=== PATIENT | male | born 1990 | race Caucasian/White ===

== ENCOUNTER 2016-08-22 12:31 | Emergency (ER) | payer OTHER ==
--- NOTE | 2016-08-22 13:03 | PHYS DOC ---
Past Medical History Past Medical History: Other Additional Past Medical Histor: PTSD,R knee pain Past Surgical History: Other Additional Past Surgical Histo: KNEE SURGERY Alcohol Use: Occasionally Drug Use: None Adult General Chief Complaint Chief Complaint: MULTIPLE COMPLAINTS HPI HPI Patient is a 26 year old male who presents with migraine headache. He states he gets migraines and they usually come about once a month and usually is able take Advil or migraine tablet and restively wakes up it goes away. Yesterday he states he started getting a dull headache last night and woke up this morning it was still there but worse now. He states he vomited one to 2 times and he states this is his normal headache just a little bit worse. He denies any fevers confusion, neck stiffness. He states it hurts in the frontal aspect of his head this, dull ache which is his similar symptoms. He denies any allergies to medications. He states he is friend drove him to the ER today. Review of Systems Review of Systems Constitutional: Denies fever or chills [] Eyes: Denies change in visual acuity, redness, or eye pain [] HENT: Denies nasal congestion or sore throat [] Respiratory: Denies cough or shortness of breath [] Cardiovascular: No additional information not addressed in HPI [] GI: Denies abdominal pain, nausea, vomiting, bloody stools or diarrhea [] : Denies dysuria or hematuria [] Musculoskeletal: Denies back pain or joint pain [] Integument: Denies rash or skin lesions [] Neurologic: Denies focal weakness or sensory changes, positive for headache Endocrine: Denies polyuria or polydipsia [] Current Medications Current Medications Current Medications Medications (Trade) Dose Ordered Sig/Mikel Start Time Stop Time Status Last Admin Dose Admin Diphenhydramine HCl (Benadryl) 25 mg 1X ONCE 08/22/16 13:30 08/22/16 13:31 DC 08/22/16 13:19 25 MG Promethazine HCl 25 mg/Sodium Chloride 51 ml @ 101 mls/hr 1X ONCE 08/22/16 13:30 08/22/16 14:00 DC 08/22/16 13:19 101 MLS/HR Sodium Chloride 1,000 ml @ 1,000 mls/hr 1X ONCE 08/22/16 13:30 08/22/16 14:29 DC 08/22/16 13:14 1,000 MLS/HR Allergies Allergies Allergies Coded Allergies Type Severity Reaction Last Updated Verified No Known Drug Allergies 08/03/13 No Physical Exam Physical Exam Constitutional: Well developed, well nourished, no acute distress, non-toxic appearance. [] HENT: Normocephalic, atraumatic, bilateral external ears normal, oropharynx moist, no oral exudates, nose normal. [] Eyes: PERRLA, EOMI, conjunctiva normal, no discharge. [] Neck: Normal range of motion, no tenderness, supple, no stridor. [] Cardiovascular:Heart rate regular rhythm, no murmur [] Lungs & Thorax: Bilateral breath sounds clear to auscultation [] Abdomen: Bowel sounds normal, soft, no tenderness, no masses, no pulsatile masses. [] Skin: Warm, dry, no erythema, no rash. [] Back: No tenderness, no CVA tenderness. [] Extremities: No tenderness, no cyanosis, no clubbing, ROM intact, no edema. [] Neurologic: Alert and oriented X 3, normal motor function, normal sensory function, no focal deficits noted. [] Psychologic: Affect normal, judgement normal, mood normal. [] Current Patient Data Vital Signs Vital Signs Date Time Temp Pulse Resp B/P (MAP) Pulse Ox O2 Delivery O2 Flow Rate FiO2 08/22/16 13:00 98.1 67 18 123/67 (85) 100 Room Air 98.1 EKG EKG [] Radiology/Procedures Radiology/Procedures [] Impressions: Migraine Course & Med Decision Making Course & Med Decision Making Pertinent Labs and Imaging studies reviewed. (See chart for details) Was given IV Phenergan and Benadryl and his headache has resolved. He is being discharged with by mouth Phenergan. Return precautions given for severe headache , uncontrolled nausea vomiting, fevers, nuchal rigidity, confusion or other concerns. He is agreeable to the plan and being discharged in stable condition. Dragon Disclaimer Dragon Disclaimer This electronic medical record was generated, in whole or in part, using a voice recognition dictation system. Departure Departure Impression: Primary Impression: Migraine Disposition: 01 HOME, SELF-CARE Condition: STABLE Referrals: UNKNOWN PCP NAME (PCP) Patient Instructions: Migraine Headache Additional Instructions: You received IV Phenergan and Benadryl. Your migraine headache has resolved. Your being discharged home. Your being given a prescription for Phenergan. If your headache returns and your normal migraine treatments dont work you can take Phenergan and Benadryl by mouth. Please follow the instructions on the bottle. Do not drive or taking this medicine as it they can both make you sleepy and impair judgment. Return ER if you have severe headache, uncontrolled nausea vomiting, fevers or other concerns. Scripts Promethazine Hcl (PROMETHAZINE HCL) 25 Mg Tablet 1 TAB PO PRN Q6HRS Y for MIGRAINE HEADACHE, #30 TAB Prov: HEATHER CORRALES MD 08/22/16 HEATHER CORRALES MD Aug 22, 2016 13:03
[2016-08-22] MEDS ORDERED: PROMETHAZINE 25 MG in IV NORMAL SALINE 50ML 50 ML IV ONE (13:30)
[2016-08-22] MEDS ORDERED: diphenhydrAMINE 50 MG/ML VIAL IVP ONE (13:30)
[2016-08-22] MEDS ORDERED: IV NORMAL SALINE 1000ML BAG 1,000 ML IV ONE (13:30)
[2016-08-22] MEDS ORDERED: PROM25TA10 PO (15:19)
[2016-08-22 15:20] VITALS: BP 107/56
== END 2016-08-22 15:28 | disposition home or self-care (01) ==
LOC: ER 12:31
DX: G43.909 Migraine, unspecified, not intractable, without status migrainosus (principal); F43.10 Post-traumatic stress disorder, unspecified
CPT/HCPCS: 96365; 96375; 99284; J1200; J2550; J7030

== ENCOUNTER 2017-01-02 16:03 | Emergency (ER) | payer OTHER ==
[~2017-01-02] VITALS: Ht 177.8 cm; Wt 65.8 kg
[~2017-01-02 16:03] MED LIST: PROM25TA10 PO
[2017-01-02 16:12] VITALS: BP 124/73
[2017-01-02] MEDS ORDERED: KETOROLAC 60 MG/2 ML INJ. IM ONE (16:45)
--- NOTE | 2017-01-02 16:52 | RAD ---
2 view CXR: Clinical indications: Left-sided chest pain radiating to left shoulder for 4 hours.. Findings: No acute lung infiltrate or pleural effusion or pulmonary edema or lung mass or pneumothorax is seen. The heart size, pulmonary vasculature, mediastinum and both jordon are unremarkable. The osseous structures appear intact. Impression: No acute radiographic abnormality is seen.
[2017-01-02] MEDS ORDERED: NAPR500T PO (17:07)
--- NOTE | 2017-01-02 17:08 | PHYS DOC ---
Past Medical History Past Medical History: Other Additional Past Medical Histor: PTSD,R knee pain, history of TBI Past Surgical History: Other Additional Past Surgical Histo: KNEE SURGERY Alcohol Use: Occasionally Drug Use: None Adult General Chief Complaint Chief Complaint: CHEST WALL PAIN HPI HPI Patient is a 26 year old male who presents with complaint of chest wall pain that started earlier today. Patient states that the pain is located over his breastbone. Patient states that the pain becomes sharp whenever he tries to take a deep breath. Patient states that he had a recent viral illness that resolved 3 days ago prior to onset of symptoms. Patient denies any fevers or shortness of breath currently. Any significant past medical history. Patient denies family history of cardiac disease in young members of his family. Patient has not taken any medications at this time to help with symptoms. Patient rates his pain as 4 out of 10 at rest but states that it increases to 8 out of 10 with coughing and deep inspiration. Review of Systems Review of Systems Constitutional: Denies fever or chills [] Eyes: Denies change in visual acuity, redness, or eye pain [] HENT: Denies nasal congestion or sore throat [] Respiratory: Denies cough or shortness of breath [] Cardiovascular: Chest pain, denies edema[] GI: Denies abdominal pain, nausea, vomiting, bloody stools or diarrhea [] : Denies dysuria or hematuria [] Musculoskeletal: Denies back pain or joint pain [] Integument: Denies rash or skin lesions [] Neurologic: Denies headache, focal weakness or sensory changes [] Current Medications Current Medications Current Medications Medications (Trade) Dose Ordered Sig/[facility] Start Time Stop Time Status Last Admin Dose Admin Ketorolac Tromethamine (Toradol Im) 60 mg 1X ONCE 01/02/17 16:45 01/02/17 16:46 DC 01/02/17 16:38 60 MG Allergies Allergies Allergies Coded Allergies Type Severity Reaction Last Updated Verified No Known Drug Allergies 08/03/13 No Physical Exam Physical Exam Constitutional: Alert, afebrile, no acute distress. [] HENT: Normocephalic, atraumatic, bilateral external ears normal, oropharynx moist, no oral exudates, nose normal. [] Eyes: PERRLA, EOMI, conjunctiva normal, no discharge. [] Neck: Normal range of motion, no tenderness, supple, no stridor. [] Cardiovascular:Heart rate regular rhythm, no murmur [] Lungs & Thorax: Bilateral breath sounds clear to auscultation, minimal tenderness palpation over anterior chest wall [] Abdomen: Bowel sounds normal, soft, no tenderness, no masses, no pulsatile masses. [] Skin: Warm, dry, no erythema, no rash. [] Back: No tenderness, no CVA tenderness. [] Extremities: No tenderness, no cyanosis, no clubbing, ROM intact, no edema. [] Neurologic: Alert and oriented X 3, normal motor function, normal sensory function, no focal deficits noted. [] Current Patient Data Vital Signs Vital Signs Date Time Temp Pulse Resp B/P (MAP) Pulse Ox O2 Delivery O2 Flow Rate FiO2 01/02/17 16:12 98.9 89 20 124/73 (90) 99 Room Air 98.9 EKG EKG Interpreted by me: Heart rate 83, sinus rhythm, normal intervals, normal axis, no acute ST/T-wave abnormalities present[] Radiology/Procedures Radiology/Procedures Two-view chest x-ray interpreted by me: No infiltrates, no effusions, normal cardiac silhouette[] Course & Med Decision Making Course & Med Decision Making Pertinent Labs and Imaging studies reviewed. (See chart for details) The patient's symptoms appear consistent with pleurisy likely secondary to recent viral illness. Patient's EKG and chest x-rays are normal. I have low suspicion for acute cardiac etiology of symptoms. Patient does not meet Wells criteria for pulmonary embolism. Patient treated with Toradol in the emergency department with improvement symptoms. The patient will continue on Naprosyn for outpatient therapy and recommended follow-up in one week primary doctor for reevaluation. Advised return emergency department for any worsening symptoms. Patient voiced understanding and in agreement with treatment plan. Dragon Disclaimer Dragon Disclaimer This electronic medical record was generated, in whole or in part, using a voice recognition dictation system. Departure Departure Impression: Primary Impression: Chest pain Disposition: HOME, SELF-CARE Condition: IMPROVED Referrals: UNKNOWN PCP NAME (PCP) Patient Instructions: Chest Pain (Nonspecific) Additional Instructions: Follow-up to primary doctor in 1 week for reevaluation. Return to emergency department for any worsening symptoms. Scripts Naproxen (NAPROSYN) 500 Mg Tablet 1 TAB PO BID, #14 TAB 0 Refills Prov: MARK TALAMANTES MD 01/02/17 Problem Qualifiers Primary Impression: Chest pain Chest pain type: chest pain on breathing Qualified Codes: R07.1 - Chest pain on breathing MARK TALAMANTES MD Jan 02, 2017 17:08
--- NOTE | 2017-01-02 17:18 | EKG ---
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
== END 2017-01-02 17:14 | disposition home or self-care (01) ==
LOC: ER 16:03
DX: R07.1 Chest pain on breathing (principal); R05 Cough; F43.10 Post-traumatic stress disorder, unspecified; Z87.820 Personal history of traumatic brain injury
CPT/HCPCS: 71020; 93005; 96372; 99284; J1885

== ENCOUNTER 2017-07-26 14:52 | Emergency (ER) | payer OTHER | END 2017-07-26 15:59 | disposition home or self-care (01) | LOC: ER 14:52 | DX: S46.911A Strain of unspecified muscle, fascia and tendon at shoulder and upper arm level, right arm, initial encounter (principal); F43.10 Post-traumatic stress disorder, unspecified; V89.2XXA Person injured in unspecified motor-vehicle accident, traffic, initial encounter; Y93.89 Activity, other specified; Y99.8 Other external cause status; Y92.488 Other paved roadways as the place of occurrence of the external cause | CPT/HCPCS: 73030; 99284 ==

== ENCOUNTER 2018-05-02 00:45 | Emergency (ER) | payer OTHER ==
[~2018-05-02] VITALS: Ht 175.3 cm; Wt 65.8 kg
[~2018-05-02 00:45] MED LIST changes: +CYCL10TA2 PO; +METH4TAB2 PO; +NAPR-514 PO; +NAPR-683 PO
[2018-05-02 00:54] VITALS: BP 117/56
[2018-05-02] MEDS ORDERED: PROPARACAINE 0.5% OPHTH SOLUTION 15ML BOTTLE. OD ONE (01:30)
[2018-05-02] MEDS ORDERED: DIPHTH,PERTUSS(ACELL),TET TOX 0.5 ML DISP.SYRIN. VAX IM ONE (01:30)
[2018-05-02] MEDS ORDERED: SULF5DRO OD (01:47)
--- NOTE | 2018-05-02 05:40 | PHYS DOC ---
Past Medical History Past Medical History: No Pertinent History Additional Past Medical Histor: PTSD,R knee pain, history of TBI Past Surgical History: Other Additional Past Surgical Histo: RIGHT KNEE MENISCUS Alcohol Use: None Drug Use: None Adult General Chief Complaint Chief Complaint: EYE PROBLEMS HPI HPI Patient is a 27 year old 27-year-old male who presents with right eye patient veryforeign body sensation after grinding metal several hours prior to ED arrival. Denies vision change. On exam, the patient has a particulate piece of metal embedded into his cornea the 3 o'clock position over the iris. no other symptoms or complaints.[] Review of Systems Review of Systems All other systems were reviewed and found to be within normal limits, except as documented in this note.Review symptoms as per history of present illness. Current Medications Current Medications Current Medications Medications (Trade) Dose Ordered Sig/Mikel Start Time Stop Time Status Last Admin Dose Admin Diphtheria/ Tetanus/Acell Pertussis (Boostrix) 0.5 ml ONCE ONCE 05/02/18 01:30 05/02/18 01:31 DC 05/02/18 01:09 0.5 ML Proparacaine HCl (Alcaine) 2 drop 1X ONCE 05/02/18 01:30 05/02/18 01:31 DC 05/02/18 01:09 2 DROP Allergies Allergies Allergies Coded Allergies Type Severity Reaction Last Updated Verified No Known Drug Allergies 08/03/13 No Physical Exam Physical Exam Constitutional: Well developed, well nourished, no acute distress, non-toxic appearance. [] HENT: Normocephalic, atraumatic, bilateral external ears normal, oropharynx moist, no oral exudates, nose normal. [] Eyes: PERRLA,particular, metal, foreign body right eye cornea at 3 o'clock position overlying medial iris.no foreign bodies present under eyelids on inspection and sleeping [] Neck: Normal range of motion, no tenderness, supple, no stridor. [] , normal sensory function, no focal deficits noted. [] Psychologic: Affect normal, judgement normal, mood normal. [] Current Patient Data Vital Signs Vital Signs Date Time Temp Pulse Resp B/P (MAP) Pulse Ox O2 Delivery O2 Flow Rate FiO2 05/02/18 00:54 97.3 77 117/56 (76) 97 97.3 EKG EKG [] Radiology/Procedures Radiology/Procedures [] Course & Med Decision Making Course & Med Decision Making Pertinent Labs and Imaging studies reviewed. (See chart for details) [Alcaine applied to right eye.Foreign body cautiously removed via bevelled needle with aid of slit lamp. This was then cautiously in successful on first attempt. Patient reports resolution of symptoms after foreign body removal. Patient's eye irrigated] Dragon Disclaimer Dragon Disclaimer This electronic medical record was generated, in whole or in part, using a voice recognition dictation system. Departure Departure Impression: Primary Impression: Foreign body in eyeball, right Disposition: 01 HOME, SELF-CARE Condition: GOOD Patient Instructions: Eye - Foreign Body, [id number] Additional Instructions: Please use topical eye drops as directed and follow up with local eye doctor on Thursday for re-evaluation if symptoms persist. Return to the ED if new or worsening symptoms. Scripts Sulfacetamide Sodium (BLEPH-10) 5 Ml Drops 2 DROP OD TID for 7 Days, #5 ML Prov: DELANO RUSHING DO 05/02/18 DELANO RUSHING DO May 02, 2018 05:40
== END 2018-05-02 02:00 | disposition home or self-care (01) ==
LOC: ER 00:45
DX: T15.01XA Foreign body in cornea, right eye, initial encounter (principal); X58.XXXA Exposure to other specified factors, initial encounter; Y93.89 Activity, other specified; Y92.89 Other specified places as the place of occurrence of the external cause; Y99.8 Other external cause status
CPT/HCPCS: 65222; 90471; 90715; 99284-25

== ENCOUNTER 2018-05-02 04:00 | Emergency (ER) | payer OTHER ==
[~2018-05-02] VITALS: Ht 175.3 cm; Wt 65.8 kg
[~2018-05-02 04:00] MED LIST changes: +SULF5DRO OD
[2018-05-02 04:08] VITALS: BP 106/66
--- NOTE | 2018-05-02 05:59 | PHYS DOC ---
Past Medical History Past Medical History: No Pertinent History Additional Past Medical Histor: PTSD,R knee pain, history of TBI Past Surgical History: Other Additional Past Surgical Histo: RIGHT KNEE MENISCUS Alcohol Use: None Drug Use: None Adult General Chief Complaint Chief Complaint: EYE PROBLEMS HPI HPI Patient is a 27 year old right eye foreign body sensation, patient seen in the emergency department earlier this evening with removal of embedded right eye metal foreign body. Patient denies change in vision. States he felt a foreign body sensation under his upper eyelid after irrigation in the emergency department. A foreign body sensation has since resolved. [] Review of Systems Review of Systems ROS as per HPI [] All other systems were reviewed and found to be within normal limits, except as documented in this note. Allergies Allergies Allergies Coded Allergies Type Severity Reaction Last Updated Verified No Known Drug Allergies 08/03/13 No Physical Exam Physical Exam Constitutional: Well developed, well nourished, no acute distress, non-toxic appearance. [] HENT: Normocephalic, atraumatic, bilateral external ears normal, oropharynx moist, no oral exudates, nose normal. [] Eyes: PERRLA, EOMI, no foriegn body upon eyelid eversion, sweeping, and inspection after irrigation. [] Neck: Normal range of motion, no tenderness, supple, no stridor. [] Cardiovascular:Heart rate regular rhythm, no murmur [] Lungs & Thorax: Bilateral breath sounds clear to auscultation [] Abdomen: Bowel sounds normal, soft, no tenderness. [] Skin: Warm, dry, no erythema, no rash. [] Back: No tenderness. [] Extremities: No tenderness, no cyanosis, no clubbing, ROM intact, no edema. [] Neurologic: Alert and oriented X 3, normal motor function, normal sensory function, no focal deficits noted. [] Psychologic: Affect normal, judgement normal, mood normal. [] Current Patient Data Vital Signs Vital Signs Date Time Temp Pulse Resp B/P (MAP) Pulse Ox O2 Delivery O2 Flow Rate FiO2 05/02/18 04:08 97.9 60 18 106/66 (79) 99 Room Air 97.9 EKG EKG [] Radiology/Procedures Radiology/Procedures [] Course & Med Decision Making Course & Med Decision Making Pertinent Labs and Imaging studies reviewed. (See chart for details) [temporary foreign body sensation, ophthalmology follow-up as needed] Quinn Disclaimer Quinn Disclaimer This electronic medical record was generated, in whole or in part, using a voice recognition dictation system. Departure Departure Impression: Primary Impression: Sensation of foreign body in eye Disposition: 01 HOME, SELF-CARE Condition: GOOD Patient Instructions: Eye - Foreign Body, [id number] Additional Instructions: Apply antibiotic eyedrops as directed and follow up with eye doctor on Thursday if pain persists. DELANO RUSHING DO May 02, 2018 05:59
== END 2018-05-02 04:40 | disposition home or self-care (01) ==
LOC: ER 04:00
DX: H57.89 Other specified disorders of eye and adnexa (principal); F43.10 Post-traumatic stress disorder, unspecified; Z87.820 Personal history of traumatic brain injury
CPT/HCPCS: 99281; 99282

== ENCOUNTER 2018-05-06 09:04 | Emergency (ER) | payer OTHER ==
[~2018-05-06] VITALS: Ht 175.3 cm; Wt 65.8 kg
[2018-05-06 09:08] VITALS: BP 139/67
[2018-05-06] MEDS ORDERED: FLUORESCEIN OPHTH TEST STRIP. OD ONE (09:30)
[2018-05-06] MEDS ORDERED: TETRACAINE 0.5% OPHTH SOLUTION 4ML BOTTLE. OD ONE (09:30)
--- NOTE | 2018-05-06 10:04 | PHYS DOC ---
Past Medical History Past Medical History: Other Additional Past Medical Histor: PTSD,R knee pain, history of TBI Past Surgical History: Other Additional Past Surgical Histo: RIGHT KNEE MENISCUS Additional Information: 0.5 PPD Alcohol Use: None Drug Use: None Adult General Chief Complaint Chief Complaint: EYE PROBLEMS HPI HPI Patient is a 27 year old medical presents with right eye irritation that began on Thursday. Patient states he was seen in the ED Thursday after having a piece of metal in his eye from grinding metal he states the metal was removed. He states he has continued to feel irritation to the eye. Patient denies any vision loss. He states he has not followed up with an sr solutions consultant and could not afford the prescription antibiotic medicine that was written for pain on Thursday. Review of Systems Review of Systems Constitutional: Denies fever or chills [] Eyes: Reports right eye irritation. Denies change in visual acuity, redness, or eye pain [] Musculoskeletal: Denies back pain or joint pain [] Integument: Denies rash or skin lesions [] Neurologic: Denies headache, focal weakness or sensory changes [] All other systems were reviewed and found to be within normal limits, except as documented in this note. Current Medications Current Medications Current Medications Medications (Trade) Dose Ordered Sig/Mikel Start Time Stop Time Status Last Admin Dose Admin Fluorescein Sodium (Ful-Meggan) 1 strip 1X ONCE 05/06/18 09:30 05/06/18 09:31 DC 05/06/18 09:52 1 STRIP Tetracaine HCl (Tetracaine) 1 drop 1X ONCE 05/06/18 09:30 05/06/18 09:31 DC 05/06/18 09:52 1 DROP Allergies Allergies Allergies Coded Allergies Type Severity Reaction Last Updated Verified No Known Drug Allergies 08/03/13 No Physical Exam Physical Exam Constitutional: Well developed, well nourished, no acute distress, non-toxic appearance. [] HENT: Normocephalic, atraumatic, bilateral external ears normal, oropharynx moist, no oral exudates, nose normal. [] Eyes: PERRLA, EOMI, right conjunctiva is slightly injected, clear drainage, there is a tiny black object but could be metal or scarring after the metal was removed at 3 o'clock position. Skin: Warm, dry, no erythema, no rash. [] Back: No tenderness, no CVA tenderness. [] Extremities: No tenderness, no cyanosis, no clubbing, ROM intact, no edema. [] Neurologic: Alert and oriented X 3, normal motor function, normal sensory function, no focal deficits noted. [] Psychologic: Affect normal, judgement normal, mood normal. [] Current Patient Data Vital Signs Vital Signs Date Time Temp Pulse Resp B/P (MAP) Pulse Ox O2 Delivery O2 Flow Rate FiO2 05/06/18 09:08 98.1 65 20 139/67 (91) 99 Room Air 98.1 EKG EKG [] Radiology/Procedures Radiology/Procedures [] Course & Med Decision Making Course & Med Decision Making Pertinent Labs and Imaging studies reviewed. (See chart for details) This is a 27-year-old male patient who presents to the ED today complaining of right eye irritation from a piece of metal that got in his eye while grinding on Thursday last week. This is his third visit for this complain. Patient still has a tiny's speck in the right cornea it could be a left over metal speck or, scarring from metal removal. Patient was encouraged to follow up with sr solutions consultant considering it's almost been a week. Discharged with erythromycin. Dragon Disclaimer Dragon Disclaimer This electronic medical record was generated, in whole or in part, using a voice recognition dictation system. Departure Departure Impression: Primary Impression: Foreign body in eyeball, right Disposition: 01 HOME, SELF-CARE Condition: STABLE Referrals: UNKNOWN PCP NAME (PCP) ROB COX MD follow up as soon as possible Patient Instructions: Eye - Foreign Body Additional Instructions: You were evaluated in the emergency room we highly recommend you follow-up with an sr solutions consultant as soon as possible. Scripts Erythromycin Base (Erythromycin) 1 Gm Oint...g. 1 GM OP Q4HRS W/A, #1 MISC Prov: DEZ BARNEY FABRICE 05/06/18 Problem Qualifiers Primary Impression: Foreign body in eyeball, right Encounter type: initial encounter Qualified Codes: S05.51XA - Penetrating wound with foreign body of right eyeball, initial encounter DEZ BARNEY FABRICE May 06, 2018 10:04
[2018-05-06] MEDS ORDERED: ERYT1OIN6 OP (10:11)
== END 2018-05-06 10:24 | disposition home or self-care (01) ==
LOC: ER 09:04
DX: S05.51XA Penetrating wound with foreign body of right eyeball, initial encounter (principal); F17.200 Nicotine dependence, unspecified, uncomplicated; X58.XXXA Exposure to other specified factors, initial encounter; Y93.89 Activity, other specified; Y92.89 Other specified places as the place of occurrence of the external cause; Y99.8 Other external cause status
CPT/HCPCS: 99283; 99284

== ENCOUNTER 2019-03-22 04:10 | Emergency (ER) | payer SELFPAY ==
[~2019-03-22] VITALS: Ht 177.8 cm; Wt 65.8 kg
[~2019-03-22 04:10] MED LIST changes: +ERYT1OIN6 OP
[2019-03-22 04:32] LABS: BILIRUBIN,URINE NEGATIVE (NEG); CLARITY,URINE CLEAR; COLOR,URINE YELLOW; NITRITE,URINE NEGATIVE (NEG); PROTEIN,URINE NEGATIVE (NEG-TRACE)
[2019-03-22 04:36] LABS: BACTERIA,URINE 0 /HPF (0-FEW)
[2019-03-22 04:37] LABS: SQUAMOUS EPITHELIAL CELL,UR FEW /LPF
--- NOTE | 2019-03-22 04:43 | PHYS DOC ---
Past Medical History Past Medical History: Other Additional Past Medical Histor: PTSD,R knee pain, history of TBI Past Surgical History: Other Additional Past Surgical Histo: RIGHT KNEE MENISCUS Alcohol Use: None Drug Use: None Adult General Chief Complaint Chief Complaint: FLANK PAIN HPI HPI 28-year-old male presents to the emergency Department complaints of right flank pain right upper quadrant pain all day, describes the pain as sharp, denies any dysuria, nausea, vomiting, fevers. He is well describes a headache with a history of migraine describes the pain as sharp primary to the left frontal aspect of his head. He denies any photophobia. Patient does smoke tobacco, occasional marijuana no alcohol use. He describes the pain in the right flank and right upper quadrant worsening with movements, as well as palpation. Nothing makes his pain better. Review of Systems Review of Systems Constitutional: Denies fever or chills [] Respiratory: Denies cough or shortness of breath [] Cardiovascular: No additional information not addressed in HPI [] GI: Denies abdominal pain, nausea, vomiting, bloody stools or diarrhea [] : Denies dysuria or hematuria [] Musculoskeletal: right flank/upper quadrant pain Integument: Denies rash or skin lesions [] Neurologic: + headache, no focal weakness or sensory changes [] All other systems were reviewed and found to be within normal limits, except as documented in this note. Current Medications Current Medications Current Medications Medications (Trade) Dose Ordered Sig/Mikel Start Time Stop Time Status Last Admin Dose Admin Diphenhydramine HCl (Benadryl) 50 mg 1X ONCE 03/22/19 05:00 03/22/19 05:01 DC 03/22/19 04:51 50 MG Ketorolac Tromethamine (Toradol 30mg Vial) 30 mg 1X ONCE 03/22/19 05:00 03/22/19 05:01 DC 03/22/19 04:51 30 MG Metoclopramide HCl (Reglan Vial) 10 mg 1X ONCE 03/22/19 05:00 03/22/19 05:01 DC 03/22/19 04:50 10 MG Ondansetron HCl (Zofran) 4 mg 1X ONCE 03/22/19 05:00 03/22/19 04:27 DC Sodium Chloride 1,000 ml @ 1,000 mls/hr Q1H 03/22/19 05:00 03/22/19 05:59 DC 03/22/19 04:50 1,000 MLS/HR Allergies Allergies Allergies Coded Allergies Type Severity Reaction Last Updated Verified No Known Drug Allergies 08/03/13 No Physical Exam Physical Exam Constitutional: Well developed, well nourished, no acute distress, non-toxic appearance. [] Cardiovascular:Heart rate regular rhythm, no murmur [] Lungs & Thorax: Bilateral breath sounds clear to auscultation [] Abdomen: Bowel sounds normal, soft, TTP RUQ, no masses, no pulsatile masses. [] Skin: Warm, dry, no erythema, no rash. [] Back: No tenderness, no CVA tenderness. [] Extremities: No tenderness, no edema. [] Neurologic: Alert and oriented X 3, no focal deficits noted. [] Psychologic: Affect normal, judgement normal, mood normal. [] Current Patient Data Vital Signs Vital Signs Date Time Temp Pulse Resp B/P (MAP) Pulse Ox O2 Delivery O2 Flow Rate FiO2 03/22/19 06:13 57 14 108/57 (74) 99 Room Air 03/22/19 04:20 98.6 98.6 Lab Values Laboratory Tests Test 03/22/19 04:15 03/22/19 04:20 03/22/19 04:30 Urine Collection Type Unknown Urine Color Yellow Urine Clarity Clear Urine pH 6.0 Urine Specific Crowell 1.025 Urine Protein Negative mg/dL (NEG-TRACE) Urine Glucose (UA) Negative mg/dL (NEG) Urine Ketones (Stick) Negative mg/dL (NEG) Urine Blood Trace (NEG) Urine Nitrite Negative (NEG) Urine Bilirubin Negative (NEG) Urine Urobilinogen Dipstick 1.0 mg/dL (0.2 mg/dL) Urine Leukocyte Esterase Negative (NEG) Urine RBC 1-2 /HPF (0-2) Urine WBC 1-4 /HPF (0-4) Urine Squamous Epithelial Cells Few /LPF Urine Bacteria 0 /HPF (0-FEW) Urine Mucus Marked /LPF Lipase 77 U/L (73-393) White Blood Count 8.2 x10^3/uL (4.0-11.0) Red Blood Count 4.57 x10^6/uL (4.30-5.70) Hemoglobin 14.7 g/dL (13.0-17.5) Hematocrit 42.1 % (39.0-53.0) Mean Corpuscular Volume 92 fL (79-100) Mean Corpuscular Hemoglobin 32 pg (25-35) Mean Corpuscular Hemoglobin Concent 35 g/dL (31-37) Red Cell Distribution Width 12.9 % (11.5-14.5) Platelet Count 222 x10^3/uL (140-400) Neutrophils (%) (Auto) 51 % (31-73) Lymphocytes (%) (Auto) 30 % (24-48) Monocytes (%) (Auto) 15 % (0-9) H Eosinophils (%) (Auto) 2 % (0-3) Basophils (%) (Auto) 1 % (0-3) Neutrophils # (Auto) 4.2 x10^3/uL (1.8-7.7) Lymphocytes # (Auto) 2.5 x10^3/uL (1.0-4.8) Monocytes # (Auto) 1.2 x10^3/uL (0.0-1.1) H Eosinophils # (Auto) 0.2 x10^3/uL (0.0-0.7) Basophils # (Auto) 0.1 x10^3/uL (0.0-0.2) Sodium Level 140 mmol/L (136-145) Potassium Level 4.0 mmol/L (3.5-5.1) Chloride Level 104 mmol/L (98-107) Carbon Dioxide Level 26 mmol/L (21-32) Anion Gap 10 (6-14) Blood Urea Nitrogen 11 mg/dL (8-26) Creatinine 1.0 mg/dL (0.7-1.3) Estimated GFR (Cockcroft-Gault) 89.0 BUN/Creatinine Ratio 11 (6-20) Glucose Level 96 mg/dL (70-99) Calcium Level 9.1 mg/dL (8.5-10.1) Total Bilirubin 1.5 mg/dL (0.2-1.0) H Aspartate Amino Transferase (AST) 15 U/L (15-37) Alanine Aminotransferase (ALT) 14 U/L (16-63) L Alkaline Phosphatase 54 U/L (46-116) Total Protein 7.2 g/dL (6.4-8.2) Albumin 4.2 g/dL (3.4-5.0) Albumin/Globulin Ratio 1.4 (1.0-1.7) Laboratory Tests 03/22/19 04:30 Laboratory Tests 03/22/19 04:30 EKG EKG [] Radiology/Procedures Radiology/Procedures [facility] [address] [place] [address] IMAGING REPORT Signed PATIENT: RUSTY URIBE ACCOUNT: [id number] : 1990 LOCATION: ER AGE: 28 SEX: M EXAM STATUS: REG ER ORD. PHYSICIAN: MYRON GAVIN MD REASON: stone protocol, right flank/RUQ tenderness PROCEDURE: CT ABDOMEN PELVIS WO CONTRAST CT abdomen and pelvis without contrast PQRS statement: CT scans at this facility use dose reduction including either automated exposure control, iterative reconstructions, and /or weight based radiation dosing via mA and kV modification when appropriate to reduce radiation dose to as low as reasonably achievable. HISTORY: Right flank pain, right upper quadrant abdominal pain. Abdomen findings: Lung bases unremarkable. Shallow disc bulges lower lumbar spine. Spleen, liver, gallbladder, pancreas, adrenal glands and kidneys are unremarkable. No urinary calculi or hydronephrosis. No obstruction or inflammation GI tract. No evidence of appendicitis. Appendix diameter is normal measuring 5 mm there is mild density within the lumen distally could be a mild appendicolith. No abdominal fluid. Pelvis findings: No bladder calculi. Bladder, prostate, rectum and bones are unremarkable. Synovial herniation foci or cyst along the lateral subcortical right femoral neck. IMPRESSION: No acute process. No urinary calculi or hydronephrosis. Appendix is negative. Electronically signed by: Barry Esquivel MD (03/22/2019 6:07 AM) [facility] DICTATED and SIGNED BY: BARRY ESQUIVEL MD DATE: 03/22/1907[] Course & Med Decision Making Course & Med Decision Making Pertinent Labs and Imaging studies reviewed. (See chart for details) []28-year-old male presents to the emergency Department complaints of right flank pain right upper quadrant pain all day, describes the pain as sharp, denies any dysuria, nausea, vomiting, fevers. He is well describes a headache with a history of migraine describes the pain as sharp primary to the left frontal aspect of his head. He denies any photophobia. Patient does smoke tobacco, occasional marijuana no alcohol use. He describes the pain in the right flank and right upper quadrant worsening with movements, as well as palpation. Nothing makes his pain better. Labs reviewed UAD negative for acute infection CT with evidence of renal stone Quinn Disclaimer Dragon Disclaimer This electronic medical record was generated, in whole or in part, using a voice recognition dictation system. Departure Departure Impression: Primary Impression: Renal colic on right side Additional Impression: Headache Disposition: HOME, SELF-CARE Condition: IMPROVED Referrals: UNKNOWN PCP NAME (PCP) Patient Instructions: Kidney Stones, [id number], Migraine Headache, [id number] Additional Instructions: Recommend follow up with PCP 3 - 5 days Return to the ER with worsening symptoms, intractable pain, fever, altered mental status Tylenol/Motrin as needed for pain FLomax 0.4mg po daily Tramadol rx x [address] with evidence of kidney stone, no acute infection Scripts Tramadol Hcl (TRAMADOL HCL) 50 Mg Tablet 50 MG PO Q6HRS PRN for PAIN for 3 Days, #12 TAB Prov: MYRON GAVIN MD 03/22/19 Tamsulosin Hcl (FLOMAX) 0.4 Mg Cap.er.24h 1 CAP PO DAILY, #14 CAP 0 Refills Prov: MYRON GAVIN MD 03/22/19 Problem Qualifiers Additional Impression: Headache Headache type: unspecified Headache chronicity pattern: acute headache Intractability: intractable Qualified Codes: R51 - Headache MYRON GAVIN MD Mar 22, 2019 04:43
[2019-03-22 04:46] LABS: BASO # 0.1 x10^3/uL (0.0-0.2); BASO % 1 % (0-3); EOS # 0.2 x10^3/uL (0.0-0.7); EOS % 2 % (0-3); HEMATOCRIT 42.1 % (39.0-53.0); HEMOGLOBIN 14.7 g/dL (13.0-17.5); LYMPH # 2.5 x10^3/uL (1.0-4.8); LYMPH % 30 % (24-48); MEAN CORPUSCULAR HEMOGLOBIN 32 pg (25-35); MEAN CORPUSCULAR HGB CONC 35 g/dL (31-37); MEAN CORPUSCULAR VOLUME 92 fL (79-100); MONO # 1.2 x10^3/uL (0.0-1.1); MONO % 15 % (0-9); NEUT # 4.2 x10^3/uL (1.8-7.7); NEUT % 51 % (31-73); PLATELET COUNT 222 x10^3/uL (140-400); RED BLOOD COUNT 4.57 x10^6/uL (4.30-5.70); RED CELL DISTRIBUTION WIDTH 12.9 % (11.5-14.5); WHITE BLOOD COUNT 8.2 x10^3/uL (4.0-11.0)
[2019-03-22 04:55] LABS: CALCIUM 9.1 mg/dL (8.5-10.1)
[2019-03-22] MEDS ORDERED: IV NORMAL SALINE 1000ML BAG 1,000 ML IV SCH (05:00)
[2019-03-22] MEDS ORDERED: KETOROLAC 30 MG/ML VIAL. IV ONE (05:00)
[2019-03-22] MEDS ORDERED: ONDANSETRON PF 4 MG/2 ML VIAL. IV ONE (05:00)
[2019-03-22] MEDS ORDERED: diphenhydrAMINE 50 MG/ML VIAL IVP ONE (05:00)
[2019-03-22] MEDS ORDERED: METOCLOPRAMIDE HCL 10 MG/2 ML VIAL. IVP ONE (05:00)
[2019-03-22 05:02] LABS: ALBUMIN 4.2 g/dL (3.4-5.0); ALBUMIN/GLOBULIN RATIO 1.4 (1.0-1.7); TOTAL BILIRUBIN 1.5 mg/dL (0.2-1.0); TOTAL PROTEIN 7.2 g/dL (6.4-8.2)
[2019-03-22] MEDS ORDERED: TRAM50TA PO (06:05)
[2019-03-22] MEDS ORDERED: TAMS0.4C97 PO (06:05)
--- NOTE | 2019-03-22 06:09 | RAD ---
CT abdomen and pelvis without contrast PQRS statement: CT scans at this facility use dose reduction including either automated exposure control, iterative reconstructions, and /or weight based radiation dosing via mA and kV modification when appropriate to reduce radiation dose to as low as reasonably achievable. HISTORY: Right flank pain, right upper quadrant abdominal pain. Abdomen findings: Lung bases unremarkable. Shallow disc bulges lower lumbar spine. Spleen, liver, gallbladder, pancreas, adrenal glands and kidneys are unremarkable. No urinary calculi or hydronephrosis. No obstruction or inflammation GI tract. No evidence of appendicitis. Appendix diameter is normal measuring 5 mm there is mild density within the lumen distally could be a mild appendicolith. No abdominal fluid. Pelvis findings: No bladder calculi. Bladder, prostate, rectum and bones are unremarkable. Synovial herniation foci or cyst along the lateral subcortical right femoral neck. IMPRESSION: No acute process. No urinary calculi or hydronephrosis. Appendix is negative. Electronically signed by: Darien Esquivel MD (03/22/2019 6:07 AM) [facility]
[2019-03-22 06:13] VITALS: BP 108/57
== END 2019-03-22 06:20 | disposition home or self-care (01) ==
LOC: ER 04:10
DX: N23 Unspecified renal colic (principal); G43.909 Migraine, unspecified, not intractable, without status migrainosus; F43.12 Post-traumatic stress disorder, chronic; F12.90 Cannabis use, unspecified, uncomplicated; F17.200 Nicotine dependence, unspecified, uncomplicated; Z87.820 Personal history of traumatic brain injury; Z98.890 Other specified postprocedural states; Z79.899 Other long term (current) drug therapy
CPT/HCPCS: 36415; 74176; 80053; 81001; 83690; 85025; 96374; 96375; 99285; J1200; J1885; J2765; J7030

== ENCOUNTER 2019-11-28 14:25 | Emergency (ER) | payer SELFPAY ==
[~2019-11-28] VITALS: Ht 175.3 cm; Wt 65.9 kg
[~2019-11-28 14:25] MED LIST changes: +TAMS0.4C97 PO; +TRAM50TA PO
[2019-11-28 14:34] VITALS: BP 109/63
--- NOTE | 2019-11-28 15:28 | RAD ---
EXAM: CHEST RADIOGRAPH 11/28/2019 3:05 PM CLINICAL INDICATION: Pain with deep breath for 5 days COMPARISON: Chest radiograph 01/02/2017 TECHNIQUE: PA and lateral views of the chest FINDINGS: The heart and mediastinum are normal. Lungs are well-expanded and clear. No consolidation, pleural effusion, or pneumothorax. Pulmonary vascularity is normal. The thoracic skeleton is intact. IMPRESSION: Normal chest radiograph. Electronically signed by: Tiana Virgen MD (11/28/2019 3:25 PM) [id number]
[2019-11-28] MEDS ORDERED: NAPR-514 PO (15:58)
--- NOTE | 2019-11-28 15:58 | PHYS DOC ---
Past Medical History Past Medical History: Other Additional Past Medical Histor: PTSD,R knee pain, history of TBI Past Surgical History: Other Additional Past Surgical Histo: RIGHT KNEE MENISCUS Smoking Status: Current Every Day Smoker Additional Information: 0.75 PPD Alcohol Use: None Drug Use: None General Adult EDM: Chief Complaint: CHEST WALL PAIN HPI: HPI: Patient is a 29 year old male who presents to the emergency department with complaints of midsternal chest pain with a deep breath for the last 5 days. Patient states he has not had a cough until today. He reports that he has had a little bit of a dry cough today. He denies any fever, nausea, vomiting, diarrhea, diaphoresis, dizziness, palpitations, abdominal pain, sore throat, body aches, ear pain, or headache. He denies any changes in his ability to smell and taste things. He denies any known exposure to COVID-19. Patient denies any shortness of breath or wheezing. He currently rates his pain a 3 out of 10 on the pain scale, he denies any alleviating factors, the pain is only worse with inspiration. Review of Systems: Review of Systems: Complete ROS is negative unless otherwise stated in the HPI. Heart Score: Risk Factors: Risk Factors: DM, Current or recent (<one month) smoker, HTN, HLP, family history of CAD, obesity. Risk Scores: Score 0 - 3: 2.5% MACE over next 6 weeks - Discharge Home Score 4 - 6: 20.3% MACE over next 6 weeks - Admit for Clinical Observation Score 7 - 10: 72.7% MACE over next 6 weeks - Early Invasive Strategies Allergies: Allergies: Allergies Coded Allergies Type Severity Reaction Last Updated Verified No Known Drug Allergies 08/03/13 No Physical Exam: PE: Constitutional: Well developed, well nourished, no acute distress, non-toxic appearance. [] HENT: Normocephalic, atraumatic, bilateral external ears normal, nose normal. [] Eyes: PERRLA, EOMI, conjunctiva normal, no discharge. [] Neck: Normal range of motion, no stridor. [] Cardiovascular:Heart rate regular rhythm Lungs & Thorax: Respirations even and unlabored, no retractions, no respiratory distress, lungs CTA Abdomen: soft, no tenderness Skin: Warm, dry, no erythema, no rash. [] Extremities: No cyanosis, ROM intact, no edema. [] Neurologic: Alert and oriented X 3, no focal deficits noted. [] Psychologic: Affect normal, judgement normal, mood normal. [] Current Patient Data: Vital Signs: Vital Signs Date Time Temp Pulse Resp B/P (MAP) Pulse Ox O2 Delivery O2 Flow Rate FiO2 11/28/19 14:34 97.7 61 16 109/63 (78) 100 Room Air 97.7 EKG: EK-sinus bradycardia rate of 59, no STEMI, read by Dr. Laureano [] Radiology/Procedures: Radiology/Procedures: PROCEDURE: CHEST PA & LATERAL EXAM: CHEST RADIOGRAPH 11/28/2019 3:05 PM CLINICAL INDICATION: Pain with deep breath for 5 days COMPARISON: Chest radiograph 01/02/2017 TECHNIQUE: PA and lateral views of the chest FINDINGS: The heart and mediastinum are normal. Lungs are well-expanded and clear. No consolidation, pleural effusion, or pneumothorax. Pulmonary vascularity is normal. The thoracic skeleton is intact. IMPRESSION: Normal chest radiograph. [] Course & Med Decision Making: Course & Med Decision Making Pertinent Labs and Imaging studies reviewed. (See chart for details) [] Dragon Disclaimer: Dragon Disclaimer: This electronic medical record was generated, in whole or in part, using a voice recognition dictation system. Departure Departure Impression: Primary Impression: Pleuritic chest pain Disposition: HOME, SELF-CARE Condition: STABLE Referrals: UNKNOWN PCP NAME (PCP) Patient Instructions: Pleurisy, [id number] Additional Instructions: Fill prescription(s) and use as directed. Increase clear fluids. Avoid airway triggers such as smoke, fragrance, dust, and pollen. May take [id number] cough suppressants as needed. Follow-up with your primary care doctor if symptoms persist, return to the ER if symptoms worsen. Scripts Naproxen (NAPROXEN) 500 Mg Tablet 1 TAB PO BID PRN for PAIN for 10 Days, #20 TAB 0 Refills Prov: OZZY CALLAHAN APRN 11/28/19 Justicifation of Admission Dx: Justifications for Admission: Justification of Admission Dx: N/A OZZY CALLAHAN APRN Nov 28, 2019 15:58
--- NOTE | 2019-11-28 17:59 | EKG ---
[facility] [address] [place] [address] Test Date: 2019-11-28 Test Time: 14:38:12 Pat Name: RUSTY URIBE Department: Room: Gender: M [employer]visor [employer]: : 1990 Requested By: OZZY CALLAHAN Order Number: [id number] Reading MD: Measurements Intervals [place] Rate: 59 P: 43 NE: 122 QRS: 81 QRSD: 90 T: 46 QT: 376 QTc: 376 Interpretive Statements SINUS RHYTHM OTHERWISE NORMAL ECG RI6.02 No previous ECG available for comparison
== END 2019-11-28 16:05 | disposition home or self-care (01) ==
LOC: ER 14:25
DX: R07.81 Pleurodynia (principal); R05 Cough; F17.200 Nicotine dependence, unspecified, uncomplicated; Z87.820 Personal history of traumatic brain injury; Z98.890 Other specified postprocedural states
CPT/HCPCS: 71046; 93005; 99283